=== PATIENT | male | born 1980 | race Caucasian/White ===

== ENCOUNTER 2022-10-05 11:41 | Inpatient (IN) | payer OTHER ==
[2022-10-05 13:51] VITALS: BMI 29.8
[2022-10-05] MEDS ORDERED: BISMUTH SUBSALICYLATE 524 MG/30 ML PO PRN (14:15)
[2022-10-05] MEDS ORDERED: hydrOXYzine PAMOATE 25 MG CAPSULE (FP) PO PRN (14:15)
[2022-10-05] MEDS ORDERED: MAG HYDROX/AL HYDROX/SIMETH 30 ML UNIT-DOSE CUP PO PRN (14:15)
[2022-10-05] MEDS ORDERED: IBUPROFEN 600 MG TABLET (FP) PO PRN (14:15)
[2022-10-05] MEDS ORDERED: BENZOCAINE/MENTHOL (CHLORASEPTIC ) LOZENGE MM PRN (14:15)
[2022-10-05] MEDS ORDERED: LOPERAMIDE HCL 2 MG CAPSULE PO PRN (14:15)
[2022-10-05] MEDS ORDERED: METHOCARBAMOL 500 MG TABLET PO PRN (14:15)
[2022-10-05] MEDS ORDERED: NICOTINE 10 MG CARTRIDGE (INHALER) IH PRN (14:15)
[2022-10-05] MEDS ORDERED: NALOXONE HCL (KLOXXADO) 8 MG SPRAY NS PRN (14:15)
[2022-10-05] MEDS ORDERED: MAGNESIUM HYDROX 2400MG/30ML ORAL SUSPENSION 30 ML CUP PO PRN (14:15)
[2022-10-05] MEDS ORDERED: NICOTINE POLACRILEX 2 MG GUM BUC PRN (14:15)
[2022-10-05] MEDS ORDERED: DICYCLOMINE HCL 10 MG CAPSULE PO PRN (14:15)
[2022-10-05] MEDS ORDERED: ACETAMINOPHEN 325 MG TABLET (FP) PO PRN ×2 (14:15)
[2022-10-05] MEDS ORDERED: IBUPROFEN 400 MG TABLET (FP) PO PRN (14:15)
[2022-10-05] MEDS ORDERED: POLYETHYLENE GLYCOL (HEALTHYLAX) 3350 17 GM PACKET PO PRN (14:15)
[2022-10-05] MEDS ORDERED: chlordiazePOXIDE HCL 25 MG CAPSULE ONE (14:28)
[2022-10-05] MEDS: chlordiazePOXIDE HCL 25 MG CAPSULE PO PRN (14:58)
[2022-10-05] MEDS: chlordiazePOXIDE HCL 25 MG CAPSULE PO SCH ×2 (17:26→22:15)
[2022-10-05] MEDS: amLODIPine BESYLATE 10 MG TABLET (FP) PO SCH (19:24)
[2022-10-05] MEDS ORDERED: PROCHLORPERAZINE MALEATE 5 MG TABLET PO ONE (19:24)
[2022-10-05] MEDS: THIAMINE HCL 100 MG TABLET (FP) PO SCH (22:14)
[2022-10-05] MEDS: MELATONIN 5 MG TABLETS PO SCH (22:14)
[2022-10-05] MEDS: GABAPENTIN 300 MG CAPSULE PO SCH (22:18)
[2022-10-06] MEDS: chlordiazePOXIDE HCL 25 MG CAPSULE PO SCH ×4 (06:04→22:14)
[2022-10-06] MEDS: GABAPENTIN 300 MG CAPSULE PO SCH ×3 (06:04→22:14)
[2022-10-06] MEDS ORDERED: PATIENT'S OWN MEDICATION (NON-FORMULARY) (Omeprazole [Omeprazole] 20 MG Tablet.Dr) PO SCH (10:00)
[2022-10-06] MEDS: PRENATAL VITAMINS W/ FOLIC ACID TABLET (FP) PO SCH (10:30)
[2022-10-06] MEDS: amLODIPine BESYLATE 10 MG TABLET (FP) PO SCH (10:30)
[2022-10-06] MEDS: PANTOPRAZOLE 20 MG TABLET PO SCH (10:30)
[2022-10-06 13:37] LABS: CHLORIDE 92 mmol/L (98-107); HEMATOCRIT 45.4 % (35.4-49); HEMOGLOBIN 15.8 GM/dL (11.7-16.9); MCH 34.2 pg (25.7-33.7); MCHC 34.8 g/dl (32.0-35.9); MEAN CELL VOLUME 98.3 fl (80-96); MEAN PLT VOLUME 7.6 fl (7.5-11.1); PLATELET COUNT 245 10^3/uL (134-434); RBC 4.62 M/mm3 (4.00-5.60); RDW 14.9 % (11.9-15.9); SODIUM 132 mmol/L (136-145); WHITE BLOOD COUNT 9.8 K/mm3 (4.0-10.0)
[2022-10-06 13:42] LABS: CALCIUM 9.4 mg/dL (8.5-10.1)
[2022-10-06 13:43] LABS: ALBUMIN 3.8 g/dl (3.4-5.0); BLOOD UREA NITROGEN 8.7 mg/dL (7-18); CO2 29 mmol/L (21-32); GLUCOSE,RANDOM 128 mg/dL (74-106)
[2022-10-06] MEDS: chlordiazePOXIDE HCL 25 MG CAPSULE PO PRN (13:43)
[2022-10-06 13:46] LABS: CREATININE 0.9 mg/dL (0.55-1.3); SGOT/AST 196 U/L (15-37); SGPT/ALT 116 U/L (13-61)
[2022-10-06 13:48] LABS: BILIRUBIN,TOTAL 0.8 mg/dL (0.2-1); TOT PROT 7.7 g/dl (6.4-8.2)
[2022-10-06 13:49] LABS: ALK PHOS 120 U/L (45-117)
[2022-10-06 13:51] LABS: ANION GAP 11 MMOL/L (8-16)
[2022-10-06] MEDS: POTASSIUM CHLORIDE ORAL LIQUID 20 MEQ/15 ML PO SCH ×2 (14:22→22:15)
[2022-10-06] MEDS ORDERED: traZODone HCL 50 MG TABLET (FP) PO SCH (22:00)
[2022-10-06] MEDS: MELATONIN 5 MG TABLETS PO SCH (22:13)
[2022-10-06] MEDS: THIAMINE HCL 100 MG TABLET (FP) PO SCH (22:14)
[2022-10-06] MEDS ORDERED: guaiFENesin 200 MG/10 ML 10 ML UNIT-DOSE CUPS PO PRN (23:22)
[2022-10-07] MEDS: GABAPENTIN 300 MG CAPSULE PO SCH ×2 (05:41→14:24)
[2022-10-07] MEDS: chlordiazePOXIDE HCL 25 MG CAPSULE PO SCH ×3 (05:41→17:59)
[2022-10-07] MEDS: PANTOPRAZOLE 20 MG TABLET PO SCH (10:30)
[2022-10-07] MEDS: amLODIPine BESYLATE 10 MG TABLET (FP) PO SCH (10:30)
[2022-10-07] MEDS: PRENATAL VITAMINS W/ FOLIC ACID TABLET (FP) PO SCH (10:30)
[2022-10-07 12:33] LABS: BLOOD UREA NITROGEN 11.8 mg/dL (7-18); CALCIUM 9.9 mg/dL (8.5-10.1)
[2022-10-07 12:34] LABS: ALBUMIN 3.4 g/dl (3.4-5.0)
[2022-10-07 12:39] LABS: BILIRUBIN,TOTAL 0.6 mg/dL (0.2-1)
[2022-10-07] MEDS: chlordiazePOXIDE HCL 25 MG CAPSULE PO PRN (14:24)
[2022-10-07] MEDS ORDERED: LACTULOSE 20 GM/30 ML UDC (FOR ORAL USE ONLY) PO SCH (16:26)
[2022-10-07 17:22] VITALS: RESP 18
[2022-10-07 21:15] VITALS: BP 148/108; PULSE 115; TEMP 97.3
[2022-10-08] MEDS ORDERED: chlordiazePOXIDE HCL 10 MG CAPSULE PO PRN
[2022-10-08] MEDS ORDERED: chlordiazePOXIDE HCL 10 MG CAPSULE PO SCH (05:00)
[2022-10-09] MEDS ORDERED: chlordiazePOXIDE HCL 10 MG CAPSULE PO SCH (05:00)
[2022-10-10] MEDS ORDERED: chlordiazePOXIDE HCL 10 MG CAPSULE PO ONE (05:00)
== END 2022-10-07 20:35 | disposition left against medical advice (07) | DRG 770 ==
LOC: YASAS 11:41 → Y3N 15:39
PROVIDERS: ADMIT Allergy & Immunology; ATTEND Allergy & Immunology
PROC: HZ2ZZZZ Detoxification Services for Substance Abuse Treatment (ICD-10-PCS; principal; 2022-10-05)
DX: F10.230 Alcohol dependence with withdrawal, uncomplicated (principal); F17.210 Nicotine dependence, cigarettes, uncomplicated; F41.9 Anxiety disorder, unspecified; F32.A Depression, unspecified; E87.6 Hypokalemia; G47.00 Insomnia, unspecified; I10 Essential (primary) hypertension; K21.9 Gastro-esophageal reflux disease without esophagitis; Z88.8 Allergy status to other drugs, medicaments and biological substances
CPT/HCPCS: 36415; 80053; 82140; 85027; 86780; C9803-CS; U0003; U0005